=== PATIENT | male | born 1940 | race Hispanic/Latino ===

== ENCOUNTER → 2019-05-08 | Outpatient (CLI) | payer MEDICARE, OTHER ==
[~2019-05-08] MED LIST: AMLO2.5T4 PO; CHOL200074 PO; HYDR25TA PO; MULT-1192 PO
== END | disposition home or self-care (01) ==
LOC: RAH 11:33
PROVIDERS: ATTEND Physical Medicine & Rehabilitation
DX: M48.061 Spinal stenosis, lumbar region without neurogenic claudication (principal); M25.78 Osteophyte, vertebrae; M54.6 Pain in thoracic spine
CPT/HCPCS: 72072; 72114

== ENCOUNTER → 2019-07-15 | Outpatient (CLI) | payer MEDICARE, OTHER | END | disposition home or self-care (01) | LOC: RAH 10:42 | PROVIDERS: ATTEND Physical Medicine & Rehabilitation | DX: M47.24 Other spondylosis with radiculopathy, thoracic region (principal) | CPT/HCPCS: 72146 ==

== ENCOUNTER 2021-08-08 08:00 | Day surgery (SDC) | payer MEDICARE, OTHER ==
[2021-08-03 11:41] LABS: BASOPHILS % (AUTO) 0.8 % (0.0-5.0); EOSINOPHILS % (AUTO) 12.8 % (0.0-8.0); HEMATOCRIT 37.4 % (42-54); LYMPHOCYTES % (AUTO) 27.9 % (21.0-51.0); MEAN CORPUSCULAR HEMOGLOBIN 31.3 pg (27.0-33.0); MEAN CORPUSCULAR HGB CONC 33.4 g/dL (32.0-36.0); MEAN CORPUSCULAR VOLUME 93.7 fL (79-99); MONOCYTES % (AUTO) 6.6 % (3.0-13.0); NEUTROPHILS % (AUTO) 51.4 % (40.0-77.0); PLATELET COUNT (AUTO) 168 K/uL (130-400); RED BLOOD CELL COUNT(AUTO) 3.99 MIL/uL (4.50-6.20); RED CELL DISTRIBUTION WIDTH 12.9 % (11.0-15.5); WHITE BLOOD COUNT (AUTO) 6.3 K/uL (4.8-10.8)
[2021-08-03 12:00] LABS: BILIRUBIN,TOTAL 0.7 mg/dL (0.2-1.0); CREATININE 1.2 mg/dL (0.5-1.5); POTASSIUM 3.5 mmol/L (3.5-5.1); TOTAL PROTEIN, SERUM 5.5 g/dL (6.0-8.3)
[2021-08-03 12:05] LABS: INR 0.96 (0.85-1.15); PROTHROMBIN TIME 10.5 SEC (9.6-11.6)
[2021-08-03 12:07] LABS: PARTIAL THROMBOPLASTIN TIME 27.1 SEC (26.3-35.5)
[2021-08-08] VITALS (7 sets, daily range): BP systolic 129–154; BP diastolic 52–73
[~2021-08-08 08:00] MED LIST changes: +FENTANYL CITRATE PF 50 MCG/1 ML 2ML VIAL ONE; +MIDAZOLAM HCL 1 MG/ML 2ML VIAL ONE
[2021-08-08] MEDS ORDERED: FENTANYL CITRATE PF 50 MCG/1 ML 2ML VIAL ONE (09:44)
[2021-08-08] MEDS ORDERED: MIDAZOLAM HCL 1 MG/ML 2ML VIAL ONE (09:44)
== END 2021-08-08 13:05 | disposition home or self-care (01) ==
LOC: DAH 08:00
PROVIDERS: ATTEND Internal Medicine Nephrology
DX: N05.2 Unspecified nephritic syndrome with diffuse membranous glomerulonephritis (principal); E11.22 Type 2 diabetes mellitus with diabetic chronic kidney disease; R80.9 Proteinuria, unspecified; I13.10 Hypertensive heart and chronic kidney disease without heart failure, with stage 1 through stage 4 chronic kidney disease, or unspecified chronic kidney disease; N18.31 Chronic kidney disease, stage 3a; E78.5 Hyperlipidemia, unspecified; E55.9 Vitamin D deficiency, unspecified; Z79.01 Long term (current) use of anticoagulants; Z79.899 Other long term (current) drug therapy; Z98.890 Other specified postprocedural states; Z79.82 Long term (current) use of aspirin
CPT/HCPCS: 36415; 50200; 76942; 80053; 85025; 85610; 85730; A4215; A4216; A4221; A4223; A4663; J2250 ×2; J3010 ×2; 99152

== ENCOUNTER 2021-08-30 13:09 | Emergency (ER) | payer OTHER ==
[~2021-08-30] VITALS: Ht 182.9 cm; Wt 102.5 kg
[~2021-08-30 13:09] MED LIST changes: -FENTANYL CITRATE PF 50 MCG/1 ML 2ML VIAL ONE; -MIDAZOLAM HCL 1 MG/ML 2ML VIAL ONE
[2021-08-30 13:49] LABS: BASOPHILS % (AUTO) 0.5 % (0.0-5.0); EOSINOPHILS % (AUTO) 9.2 % (0.0-8.0); HEMATOCRIT 36.9 % (42-54); LYMPHOCYTES % (AUTO) 26.5 % (21.0-51.0); MEAN CORPUSCULAR HEMOGLOBIN 30.5 pg (27.0-33.0); MEAN CORPUSCULAR HGB CONC 32.5 g/dL (32.0-36.0); MEAN CORPUSCULAR VOLUME 93.7 fL (79-99); NEUTROPHILS % (AUTO) 57.6 % (40.0-77.0); PLATELET COUNT (AUTO) 175 K/uL (130-400); RED BLOOD CELL COUNT(AUTO) 3.94 MIL/uL (4.50-6.20); RED CELL DISTRIBUTION WIDTH 13.2 % (11.0-15.5); WHITE BLOOD COUNT (AUTO) 6.4 K/uL (4.8-10.8)
[2021-08-30 14:08] LABS: B-TYPE NATRIURETIC PEPTIDE 343 pg/mL (0-100)
[2021-08-30 14:09] LABS: INR 0.99 (0.85-1.15); PROTHROMBIN TIME 10.8 SEC (9.6-11.6)
[2021-08-30 14:10] LABS: PARTIAL THROMBOPLASTIN TIME 27.4 SEC (26.3-35.5)
[2021-08-30 14:40] LABS: APPEARANCE,URINE Clear (CLEAR); BILIRUBIN,URINE Negative (NEGATIVE); COLOR,URINE Yellow (YELLOW); GLUCOSE, URINE (UA) 250 mg/dL (NEGATIVE); KETONES,URINE Negative (NEGATIVE); LEUKOCYTE ESTERASE ,URINE Negative (NEGATIVE); NITRATE,URINE Negative (NEGATIVE); OCCULT BLOOD,URINE Small (NEGATIVE); PH,URINE 6.5 (5.0-8.0); PROTEIN,URINE >=1000 mg/dL (NEGATIVE); UROBILINOGEN,URINE 0.2 mg/dL (0.2-1.0)
[2021-08-30 14:54] LABS: CREATININE 1.4 mg/dL (0.5-1.5)
[2021-08-30] MEDS ORDERED: NIFEDIPINE 10 MG CAP PO SCH (15:00)
[2021-08-30 15:01] LABS: ALBUMIN 1.9 g/dL (3.5-5.0); BILIRUBIN,TOTAL 0.5 mg/dL (0.2-1.0); TOTAL PROTEIN, SERUM 5.6 g/dL (6.0-8.3)
[2021-08-30] MEDS ORDERED: NIFEDIPINE 10 MG CAP ONE (15:02)
[2021-08-30 15:28] LABS: BACTERIA,URINE Few /HPF (None Seen); RBC,URINE 0-1 /HPF (0-1)
[2021-08-30 15:29] LABS: MUCUS,URINE Rare LPF (None Seen); SQUAMOUS EPITHELIAL CELL,UR Rare /HPF (0-2)
[2021-08-30] MEDS ORDERED: FUROSEMIDE 40 MG TABLET ONE (15:52)
[2021-08-30] MEDS ORDERED: IPRATROPIUM/ALBUTEROL SULFATE 3 ML SOLUTION IH ONE ×2 (15:53→16:00)
[2021-08-30 15:58] VITALS: BP 106/50
[2021-08-30] MEDS ORDERED: FUROSEMIDE 40 MG TABLET PO ONE (16:00)
== END 2021-08-30 16:43 | disposition home or self-care (01) ==
LOC: EDH 13:09
DX: N04.9 Nephrotic syndrome with unspecified morphologic changes (principal); I10 Essential (primary) hypertension; Z79.899 Other long term (current) drug therapy; Z98.890 Other specified postprocedural states
CPT/HCPCS: 36415; 71045; 80053; 81001; 82550; 83880; 84484; 85025; 85610; 85730; 93005; 94640

== ENCOUNTER → 2022-07-25 | Outpatient (CLI) | payer MEDICARE, OTHER | END | disposition home or self-care (01) | LOC: RAH 13:39 | PROVIDERS: ATTEND Nurse Practitioner | DX: M75.111 Incomplete rotator cuff tear or rupture of right shoulder, not specified as traumatic (principal); M65.811 Other synovitis and tenosynovitis, right shoulder; M19.011 Primary osteoarthritis, right shoulder; M25.411 Effusion, right shoulder; M25.811 Other specified joint disorders, right shoulder; D17.9 Benign lipomatous neoplasm, unspecified | CPT/HCPCS: 73221 ==

== ENCOUNTER 2022-12-21 18:49 | Observation (INO) | payer MEDICARE ==
[~2022-12-21] VITALS: Ht 182.9 cm; Wt 84.8 kg
[2022-12-21 20:14] LABS: BASOPHILS % (AUTO) 0.3 % (0.0-5.0); EOSINOPHILS % (AUTO) 2.1 % (0.0-8.0); LYMPHOCYTES % (AUTO) 8.1 % (21.0-51.0); MEAN CORPUSCULAR HEMOGLOBIN 31.5 pg (27.0-33.0); MEAN CORPUSCULAR HGB CONC 34.1 g/dL (32.0-36.0); MEAN CORPUSCULAR VOLUME 92.5 fL (79-99); MONOCYTES % (AUTO) 4.6 % (3.0-13.0); NEUTROPHILS % (AUTO) 84.2 % (40.0-77.0); PLATELET COUNT (AUTO) 158 K/uL (130-400); RED BLOOD CELL COUNT(AUTO) 3.46 MIL/uL (4.50-6.20); RED CELL DISTRIBUTION WIDTH 12.7 % (11.0-15.5); WHITE BLOOD COUNT (AUTO) 9.6 K/uL (4.8-10.8)
[2022-12-21 20:26] LABS: CREATININE 1.7 mg/dL (0.5-1.5); POTASSIUM 3.3 mmol/L (3.5-5.1)
[2022-12-21 20:30] LABS: ALBUMIN 2.8 g/dL (3.5-5.0); MAGNESIUM 2.4 mg/dL (1.80-2.40); TOTAL PROTEIN, SERUM 6.4 g/dL (6.0-8.3)
[2022-12-21 20:31] LABS: INR 0.93 (0.85-1.15)
[2022-12-21 20:32] LABS: PARTIAL THROMBOPLASTIN TIME 24.9 SEC (26.3-35.5)
[2022-12-21 20:41] LABS: B-TYPE NATRIURETIC PEPTIDE 131 pg/mL (0-100)
[2022-12-21 20:51] LABS: APPEARANCE,URINE CLEAR (CLEAR); BILIRUBIN,URINE NEGATIVE (NEGATIVE); COLOR,URINE LIGHT-YELLOW (YELLOW); GLUCOSE, URINE (UA) 200 mg/dL (NEGATIVE); KETONES,URINE NEGATIVE (NEGATIVE); LEUKOCYTE ESTERASE ,URINE NEGATIVE Leu/uL (NEGATIVE); NITRATE,URINE NEGATIVE (NEGATIVE); PH,URINE 6.5 (5.0-8.0); PROTEIN,URINE 300 mg/dL (NEGATIVE); UROBILINOGEN,URINE 0.2 mg/dL (0.2-1.0)
[2022-12-21 20:55] LABS: MUCUS,URINE RARE LPF (None Seen); OTHER CASTS, URINE 2 /LPF (None Seen); RBC,URINE 0-1 /HPF (0-1); SQUAMOUS EPITHELIAL CELL,UR RARE /HPF (0-2); WBC,URINE 0-1 /HPF (0-1)
[2022-12-22] MEDS ORDERED: ONDANSETRON 4MG INJ IV PRN (01:30)
[2022-12-22] MEDS ORDERED: MORPHINE 4 MG SYG IV PRN (01:30)
[2022-12-22] MEDS ORDERED: ACETAMINOPHEN 325 MG TAB PO PRN ×2 (01:30)
[2022-12-22] MEDS ORDERED: MORPHINE 2 MG SYG IV PRN (01:30)
[2022-12-22] MEDS ORDERED: POTASSIUM CHLORIDE 10% ELIXIR 20 MEQ/15 ML UDCUP PO PRN (02:00)
[2022-12-22] MEDS ORDERED: MAGNESIUM 2GM PREMIX 50ML 50 ML IV PRN (02:00)
[2022-12-22] MEDS ORDERED: POTASSIUM CHLORIDE 10MEQ/100ML 100 ML IV PRN (02:00)
[2022-12-22] MEDS ORDERED: LIDOCAINE HCL-MPF 1% 2ML VIAL IV PRN (02:00)
[2022-12-22] MEDS: KCL 20 MEQ ERTAB PO PRN ×3 (04:55→08:42)
[2022-12-22 05:09] LABS: BASOPHILS % (AUTO) 0.5 % (0.0-5.0); EOSINOPHILS % (AUTO) 5.1 % (0.0-8.0); HEMATOCRIT 32.9 % (42-54); LYMPHOCYTES % (AUTO) 18.5 % (21.0-51.0); MEAN CORPUSCULAR HEMOGLOBIN 31.6 pg (27.0-33.0); MEAN CORPUSCULAR HGB CONC 34.3 g/dL (32.0-36.0); MEAN CORPUSCULAR VOLUME 91.9 fL (79-99); NEUTROPHILS % (AUTO) 70.4 % (40.0-77.0); PLATELET COUNT (AUTO) 185 K/uL (130-400); RED BLOOD CELL COUNT(AUTO) 3.58 MIL/uL (4.50-6.20); RED CELL DISTRIBUTION WIDTH 12.9 % (11.0-15.5); WHITE BLOOD COUNT (AUTO) 9.3 K/uL (4.8-10.8)
[2022-12-22 05:25] LABS: ALANINE AMINOTRANSFERASE 16 U/L (12-78); ALBUMIN 2.7 g/dL (3.5-5.0); ASPARTATE AMINOTRANSFERASE 15 U/L (10-37); CARBON DIOXIDE 29 mmol/L (21-32); CHLORIDE 101 mmol/L (101-111); CREATININE 1.7 mg/dL (0.5-1.5); GLOMERULAR FILTR. RATE CALC 41 mL/min (>60); GLUCOSE,RANDOM 214 mg/dL (70-105); POTASSIUM 3.1 mmol/L (3.5-5.1); SODIUM SERUM 137 mmol/L (136-145); TOTAL PROTEIN, SERUM 6.5 g/dL (6.0-8.3); UREA NITROGEN, BLOOD 32 mg/dL (7-18)
[2022-12-22 05:28] LABS: HEMOGLOBIN A1C 7.2 % (4.0-6.0)
[2022-12-22 05:42] LABS: CRP QUANTITATIVE < 2.00 mg/L (0.00-9.0)
[2022-12-22 06:17] LABS: ERYTHROCYTE SEDIMENTATION RATE 65 MM/HR (0-20)
[2022-12-22] MEDS: INSULIN HUMULIN R 100 UNIT/ML 3ML SQ SCH ×3 (07:30→21:00)
[2022-12-22] MEDS ORDERED: FURO40TA5 PO (07:38)
[2022-12-22] MEDS ORDERED: FOLI0.4T6 PO (07:38)
[2022-12-22] MEDS ORDERED: FERS325 PO (07:38)
[2022-12-22] MEDS ORDERED: METF500S9 PO (07:38)
[2022-12-22] MEDS ORDERED: OMEG-125 PO (07:38)
[2022-12-22] MEDS ORDERED: METO5TAB7 PO (07:38)
[2022-12-22] MEDS ORDERED: LOSA50TA64 PO (07:38)
[2022-12-22] MEDS ORDERED: ROSU20TA31 PO (07:38)
[2022-12-22] MEDS: FAMOTIDINE 20MG VIAL IV SCH ×2 (08:42→20:13)
[2022-12-22 12:07] LABS: CHOLESTEROL 168 mg/dL (<200); HDL CHOLESTEROL 43 mg/dL (29-71); LDL DIRECT 85 mg/dL (0-99); TRIGLYCERIDES 288 mg/dL (30-200)
[2022-12-22 16:15] VITALS: BP 152/75
[2022-12-22 20:00] VITALS: BP 160/73
[2022-12-22] MEDS ORDERED: ATORVASTATIN 40 MG TABLET PO SCH (21:00)
[2022-12-23] VITALS: BP 136/71
[2022-12-23 04:00] VITALS: BP 135/75
[2022-12-23 06:22] LABS: HEMATOCRIT 29.5 % (42-54); MEAN CORPUSCULAR HEMOGLOBIN 31.5 pg (27.0-33.0); MEAN CORPUSCULAR HGB CONC 33.9 g/dL (32.0-36.0); MEAN CORPUSCULAR VOLUME 93.1 fL (79-99); RED BLOOD CELL COUNT(AUTO) 3.17 MIL/uL (4.50-6.20); RED CELL DISTRIBUTION WIDTH 12.8 % (11.0-15.5); WHITE BLOOD COUNT (AUTO) 7.3 K/uL (4.8-10.8)
[2022-12-23 06:44] LABS: ALBUMIN 2.2 g/dL (3.5-5.0); CREATININE 1.7 mg/dL (0.5-1.5); POTASSIUM 3.5 mmol/L (3.5-5.1); TOTAL PROTEIN, SERUM 5.5 g/dL (6.0-8.3)
[2022-12-23] MEDS: INSULIN HUMULIN R 100 UNIT/ML 3ML SQ SCH (06:51)
[2022-12-23 08:00] VITALS: BP 136/74
[2022-12-23] MEDS: FAMOTIDINE 20MG VIAL IV SCH (08:15)
[2022-12-23] MEDS: KCL 20 MEQ ERTAB PO PRN (08:16)
[2022-12-23] MEDS ORDERED: MECL-160 PO (10:34)
== END 2022-12-23 11:30 | disposition home or self-care (01) ==
LOC: EDH 18:49 → EDHIP 12-22 01:30 → INTOOBSV 12-22 01:30 → EDHIP 12-22 01:52 → 3CH 12-22 16:57
PROVIDERS: ADMIT Internal Medicine; ATTEND Internal Medicine
DX: F45.8 Other somatoform disorders (principal); N28.9 Disorder of kidney and ureter, unspecified; E87.6 Hypokalemia; E11.65 Type 2 diabetes mellitus with hyperglycemia; E44.0 Moderate protein-calorie malnutrition; E11.43 Type 2 diabetes mellitus with diabetic autonomic (poly)neuropathy; E78.00 Pure hypercholesterolemia, unspecified; H18.413 Arcus senilis, bilateral; N02.2 Recurrent and persistent hematuria with diffuse membranous glomerulonephritis; H55.00 Unspecified nystagmus; I10 Essential (primary) hypertension; I44.0 Atrioventricular block, first degree; Z87.441 Personal history of nephrotic syndrome; Z87.891 Personal history of nicotine dependence; Z79.84 Long term (current) use of oral hypoglycemic drugs; Z79.899 Other long term (current) drug therapy; Z98.890 Other specified postprocedural states; Z68.25 Body mass index [BMI] 25.0-25.9, adult
CPT/HCPCS: 99285; 82550; 83735; 84484; 80053 ×3; 83880; 85025 ×2; 85610; 85730; 83605; 81001; 36415 ×3; 71045; 70450; 93005; 96374; 96376 ×2; 83036; 84132; 80061; 85651; 82948 ×3; 86140; 76770; 93306; 93356; 93880; 85027; G0378 ×23; J3490 ×3

== ENCOUNTER 2024-08-06 07:46 | Day surgery (SDC) | payer MEDICARE ==
[2024-08-06] VITALS (10 sets, daily range): BP systolic 101–155; BP diastolic 52–78; PULSE 54–61; RESP 10–16; TEMP 97.1–97.7
[~2024-08-06] VITALS: Ht 182.9 cm; Wt 83.5 kg
[~2024-08-06 07:46] MED LIST changes: -AMLO2.5T4 PO; -CHOL200074 PO; +EMPA25TA PO; +FLUT1BLS12 IH; +FURO40TA5 PO; +Folic Acid PO; +GABA-529 PO; -HYDR25TA PO; +LOSA100T59 PO; +METF-444 PO; -MULT-1192 PO; +ROSU40TA88 PO; +TIOT4MIS2 IH
[2024-08-06] MEDS: 0.9%NACL 1000ML 1,000 ML IV ONE (08:57)
[2024-08-06] MEDS ORDERED: proPOFol 10 MG/ML 20ML VIAL IV ONE (09:45)
== END 2024-08-06 11:00 | disposition home or self-care (01) ==
LOC: ENDO 07:46 → DAH 07:46 → ENDO 11:00
PROVIDERS: ATTEND Internal Medicine Gastroenterology
DX: Z09 Encounter for follow-up examination after completed treatment for conditions other than malignant neoplasm (principal); D12.3 Benign neoplasm of transverse colon; D12.4 Benign neoplasm of descending colon; K57.30 Diverticulosis of large intestine without perforation or abscess without bleeding; K63.89 Other specified diseases of intestine; I10 Essential (primary) hypertension; E11.9 Type 2 diabetes mellitus without complications; E78.5 Hyperlipidemia, unspecified; Z85.118 Personal history of other malignant neoplasm of bronchus and lung; Z98.890 Other specified postprocedural states; Z79.84 Long term (current) use of oral hypoglycemic drugs; Z79.899 Other long term (current) drug therapy
CPT/HCPCS: 82948 ×2; 45385; J7030; J2704; A4620; A4215 ×2; A4223; A7002; A4222; A4221; A4663; A4606; J3490